=== PATIENT | male | born 1965 | race Native Hawaiian/Other Pacific Islander ===

== ENCOUNTER 2018-11-25 09:23 | Outpatient (CLI) | payer BC | END 2018-11-25 23:59 | disposition home or self-care (01) | LOC: US 09:23 | DX: M79.605 Pain in left leg (principal) ==

== ENCOUNTER 2022-06-03 14:52 | Outpatient (CLI) | payer BC | END 2022-06-03 19:33 | disposition home or self-care (01) | LOC: MRI 14:52 | PROVIDERS: ATTEND Nurse Practitioner | DX: M54.16 Radiculopathy, lumbar region (principal) ==